=== PATIENT | female | born 1965 | race Caucasian/White ===

== ENCOUNTER 2020-08-05 15:16 | Inpatient (IN) | payer OTHER ==
[~2020-08-05] VITALS: Ht 162.6 cm; Wt 83.0 kg
[2020-08-05] MEDS ORDERED: cefTRIAXone 1GM/50ML D5W 50 ML IV ONE (17:00)
[2020-08-05] MEDS ORDERED: DexAMETHasone SOD PHOS 10MG/1ML VIAL INJ IV ONE (17:00)
[2020-08-05] MEDS ORDERED: ZINC SULFATE 220mg CAP or TAB PO ONE (17:00)
[2020-08-05] MEDS ORDERED: DOXYCYCLINE 100MG/250ML 250 ML IV ONE (17:00)
[2020-08-05] MEDS ORDERED: ASCORBIC ACID 500 MG TAB PO ONE (17:00)
[2020-08-05] MEDS ORDERED: DOCUSATE SOD 100 MG CAP PO PRN (17:30)
[2020-08-05] MEDS ORDERED: TEMAZEPAM 15 MG CAP PO PRN (17:30)
[2020-08-05] MEDS ORDERED: HYDROcodone-ACET 5/325MG TAB PO PRN (17:30)
[2020-08-05] MEDS ORDERED: ONDANSETRON HCL 4 MG/2 ML VIAL IV PRN (17:30)
[2020-08-05] MEDS ORDERED: ACETAMINOPHEN 500 MG TAB PO PRN (17:30)
[2020-08-05] MEDS ORDERED: MORPHINE SULF INJ 2 MG/ML SYRINGE 1ML IV PRN (17:30)
[2020-08-05] MEDS ORDERED: LORazepam 0.5 MG TAB PO PRN (17:30)
[2020-08-05 17:59] LABS: Basophils # (auto) 0 10 ^3/uL (0-0.2); Basophils % (auto) 0.3 % (0.0-2.0); Eosinophils # (auto) 0 10 ^3/uL (0-0.8); Eosinophils % (auto) 0.1 % (0.0-7.0); Hematocrit 45.9 % (36.0-46.0); Hemoglobin 15.6 g/dL (12.2-16.2); Lymphocytes # (auto) 1.8 10 ^3/uL (0.4-5.4); Lymphocytes % (auto) 37.6 % (10.0-50.0); Mean Corpuscular Hemoglobin 29.9 pg (28.0-32.0); Mean Corpuscular Hgb Conc. 34.1 g/dL (32.0-36.0); Mean Corpuscular Volume 87.7 fL (80.0-100.0); Monocytes # (auto) 0.5 10 ^3/uL (0-1.3); Monocytes % (auto) 10.2 % (0.0-12.0); Neutrophils # (auto) 2.4 10 ^3/uL (1.6-8.6); Neutrophils % (auto) 51.8 % (37.0-80.0); Nucleated Red Blood Cells % 0.4 %; Platelet Count (auto) 221 10^3/uL (140-450); Red Blood Cells 5.24 10^6/uL (4.0-5.20); Red Cell Distribution Width 13.5 % (11.8-14.3); White Blood Cell 4.7 10^3/uL (4.4-10.8)
[2020-08-05 18:01] LABS: Urine Bacteria NONE SEEN /hpf (None Seen); Urine Blood Negative /uL (Negative); Urine Specific Gravity 1.007 (1.001-1.035); Urine WBC 1 /hpf (0 - 5)
[2020-08-05 18:15] LABS: Partial Thromboplastin Time 29.8 sec (23.0-31.2)
[2020-08-05 18:20] LABS: Alanine Aminotransferase 57 U/L (13-56); Albumin 3.5 g/dL (3.4-5.0); Anion Gap 8 (5-15); Aspartate Aminotransferase 61 U/L (15-37); BUN/Creatinine Ratio 11.8; Bilirubin, Total 0.5 mg/dL (0.2-1.0); Blood Urea Nitrogen 8 mg/dL (7-18); Calcium 8.4 mg/dL (8.5-10.1); Carbon Dioxide 28 mmol/L (21-32); Chloride 103 mmol/L (98-107); GFR African American 115 mL/min; GFR Non-African American 95 mL/min; Glucose 90 mg/dL (74-106); Lactate Dehydrogenase 342 U/L (84-246); Sodium 139 mmol/L (136-145)
[2020-08-05 18:34] LABS: Alkaline Phosphatase 59 U/L (45-117); CRP High Sensitivity 1.83 mg/dL (< 0.3); Total Protein 7.6 g/dL (6.4-8.2)
[2020-08-05 18:44] LABS: Potassium 2.9 mmol/L (3.5-5.1)
[2020-08-05] MEDS ORDERED: POTASSIUM CHL 20 Meq TABLET PO ONE ×2 (18:50→19:00)
[2020-08-05] MEDS ORDERED: POTASSIUM CHL 20MEQ/100ML 100 ML IV ONE (19:01)
[2020-08-05] MEDS: POTASSIUM CHL 20MEQ/100ML 100 ML IV SCH ×2 (19:14→22:56)
[2020-08-05 19:50] VITALS: BP 112/67
[2020-08-05] MEDS: ALBUTEROL SULF HFA 90MCG INH 200DOSE IN SCH (20:59)
[2020-08-05] MEDS: DOXYCYCLINE 100 MG TAB/CAP PO SCH (22:47)
[2020-08-06 06:56] LABS: Basophils # (auto) 0 10 ^3/uL (0-0.2); Basophils % (auto) 0.3 % (0.0-2.0); Eosinophils # (auto) 0 10 ^3/uL (0-0.8); Hematocrit 43.4 % (36.0-46.0); Hemoglobin 14.5 g/dL (12.2-16.2); Lymphocytes # (auto) 0.7 10 ^3/uL (0.4-5.4); Lymphocytes % (auto) 28.8 % (10.0-50.0); Mean Corpuscular Hemoglobin 29.2 pg (28.0-32.0); Mean Corpuscular Hgb Conc. 33.4 g/dL (32.0-36.0); Mean Corpuscular Volume 87.4 fL (80.0-100.0); Monocytes # (auto) 0.2 10 ^3/uL (0-1.3); Monocytes % (auto) 8.4 % (0.0-12.0); Neutrophils # (auto) 1.5 10 ^3/uL (1.6-8.6); Neutrophils % (auto) 62.5 % (37.0-80.0); Nucleated Red Blood Cells % 0.1 %; Platelet Count (auto) 225 10^3/uL (140-450); Red Blood Cells 4.96 10^6/uL (4.0-5.20); Red Cell Distribution Width 13.3 % (11.8-14.3); White Blood Cell 2.3 10^3/uL (4.4-10.8)
[2020-08-06 07:16] LABS: Potassium 4.1 mmol/L (3.5-5.1)
[2020-08-06 07:30] LABS: Albumin 3.1 g/dL (3.4-5.0); BUN/Creatinine Ratio 16.7; Bilirubin, Total 0.5 mg/dL (0.2-1.0); Calcium 8.3 mg/dL (8.5-10.1); Total Protein 6.8 g/dL (6.4-8.2)
[2020-08-06] MEDS: ALBUTEROL SULF HFA 90MCG INH 200DOSE IN SCH ×2 (07:36→14:48)
[2020-08-06] MEDS: DOXYCYCLINE 100 MG TAB/CAP PO SCH ×2 (09:23→21:30)
[2020-08-06] MEDS: ZINC SULFATE 220mg CAP or TAB PO SCH (09:23)
[2020-08-06] MEDS: ASCORBIC ACID 1,000 MG TAB PO SCH (09:23)
[2020-08-06] MEDS: ENOXAPARIN SOD 40 MG/0.4 ML SYRINGE SC SCH (09:23)
[2020-08-06] MEDS ORDERED: CHOLECALCIFEROL (VITD3) 2,000 UNIT CAP PO ONE (15:30)
[2020-08-06] MEDS ORDERED: DexAMETHasone SOD PHOS 10MG/1ML VIAL INJ IV ONE (15:30)
[2020-08-06] MEDS ORDERED: BUDESONIDE (INHALATION) 0.5 MG/2 ML NEB NEB ONE (15:30)
[2020-08-06] MEDS ORDERED: BUDESONIDE (INHALATION) 0.5 MG/2 ML NEB NEB SCH (22:00)
[2020-08-07 05:30] VITALS: BP 118/84
[2020-08-07] MEDS: ALBUTEROL SULF HFA 90MCG INH 200DOSE IN SCH ×3 (07:13→14:43)
[2020-08-07] MEDS: BUDESONIDE (INHALATION) 180 MCG IH IN SCH ×2 (07:13→14:43)
[2020-08-07 09:00] VITALS: BP 127/79
[2020-08-07] MEDS: ZINC SULFATE 220mg CAP or TAB PO SCH (09:09)
[2020-08-07] MEDS: ASCORBIC ACID 1,000 MG TAB PO SCH (09:10)
[2020-08-07] MEDS: ENOXAPARIN SOD 40 MG/0.4 ML SYRINGE SC SCH (09:10)
[2020-08-07] MEDS: DOXYCYCLINE 100 MG TAB/CAP PO SCH (09:10)
[2020-08-07] MEDS ORDERED: DexAMETHasone SOD PHOS 10MG/1ML VIAL INJ IV SCH (10:00)
[2020-08-07] MEDS ORDERED: CHOLECALCIFEROL (VITD3) 2,000 UNIT CAP PO SCH (10:00)
[2020-08-07 13:00] VITALS: BP 143/93
[2020-08-07 15:34] VITALS: BP 142/91
[2020-08-07 17:00] VITALS: BP 134/89
== END 2020-08-07 20:05 | disposition home or self-care (01) | DRG 871 ==
LOC: ER 15:16 → OVERFLOW 17:20 → TELE-E-ADS 08-07 05:25 → EAST 08-07 05:26
PROVIDERS: ADMIT Hospitalist; ATTEND Internal Medicine
DX: A41.89 Other specified sepsis (principal); U07.1 COVID-19; J12.89 Other viral pneumonia; J96.00 Acute respiratory failure, unspecified whether with hypoxia or hypercapnia; I10 Essential (primary) hypertension; E66.9 Obesity, unspecified; Z68.31 Body mass index [BMI] 31.0-31.9, adult; E87.6 Hypokalemia; Z79.82 Long term (current) use of aspirin
CPT/HCPCS: 36415; 71045; 80053; 81001; 82728; 83615; 83735; 84484; 85025; 85379; 85610; 85730; 86141; 87426; 94640; 96365; 96366; 96368; 96375; G0378; J0696; J1100; J3480; J3490